=== PATIENT | male | born 1990 | race American Indian/Alaskan Native ===

== ENCOUNTER 2022-02-24 19:43 | Emergency (ER) | payer SELFPAY ==
[2022-02-24 20:26] LABS: Color,Urine Yellow (Yellow)
[2022-02-24 20:27] LABS: Bilirubin,Urine Negative (Negative); Urobilinogen,Urine 0.2 mg/dL (<2.0)
[2022-02-24 20:28] LABS: Blood,Urine Negative (Negative)
[2022-02-24 20:32] LABS: Bacteria,Urine 1+ /HPF (Negative); Mucus,Urine 2+ /HPF; RBC,Urine < 1.0 /HPF (0.0-6.0)
[2022-02-24] MEDS ORDERED: ONDANSETRON 4 MG/2 ML INJ IV ONE (23:00)
[2022-02-24] MEDS ORDERED: FAMOTIDINE 20 MG/2 ML INJ IV ONE (23:00)
[2022-02-24] MEDS ORDERED: MORPHINE 4 MG/1 ML INJ IV ONE (23:00)
[2022-02-24 23:18] LABS: Basophils % (Auto) 0.4 % (0.0-1.8); Eosinophils % (Auto) 0.1 % (0.0-4.3); Hematocrit 47.3 % (35.5-45.6); Hemoglobin 16.2 gm/dl (11.8-15.2); Lymphocytes # (Auto) 0.8 K/mm3 (1.2-5.4); Lymphocytes % (Auto) 7.6 % (13.4-35.0); Mean Corpuscular HGB Conc 34 % (32-34); Mean Corpuscular Volume 89 fl (84-94); Monocytes # (Auto) 0.6 K/mm3 (0.0-0.8); Monocytes % (Auto) 6.2 % (0.0-7.3); Platelet Count 240 K/mm3 (140-440); Red Blood Count 5.33 M/mm3 (3.65-5.03); Red Cell Distribution Width 13.2 % (13.2-15.2)
[2022-02-24 23:35] LABS: Alanine Aminotransferase 98 units/L (7-56); Albumin 4.2 g/dL (3.9-5); BUN/Creatinine Ratio 14; Blood Urea Nitrogen 14 mg/dL (9-20); Calcium 9.7 mg/dL (8.4-10.2); Hemolysis Index 10
--- NOTE | 2022-02-25 00:12 | Cat Scan Report ---
CT ABDOMEN AND PELVIS WITHOUT CONTRAST INDICATION / CLINICAL INFORMATION: ABDOMINAL PAIN. TECHNIQUE: Axial CT images were obtained through the abdomen and pelvis without IV contrast. All CT scans at this location are performed using CT dose reduction for ALARA by means of automated exposure control. COMPARISON: None available. FINDINGS: LOWER CHEST: No significant abnormality LIVER: Mild hepatomegaly with diffuse generalized steatosis. Tiny hepatic cyst in the left hepatic lo be. GALLBLADDER/BILIARY TREE: Gallbladder is unremarkable. No significant biliary dilatation. No biliary stone is identified. PANCREAS: Moderate peripancreatic inflammatory stranding and unencapsulated fluid involving the dista l body and tail of the pancreas. No organized collection. SPLEEN: No significant abnormality ADRENALS: No significant abnormality RIGHT KIDNEY / URETER: Punctate nonobstructive stone at the lower pole calyx. No urolithiasis or hydr onephrosis. LEFT KIDNEY / URETER: No significant abnormality URINARY BLADDER: No significant abnormality REPRODUCTIVE ORGANS: No significant abnormality STOMACH / BOWEL: Small bowel is normal in caliber. The colon is unremarkable. The appendix is normal in caliber. LYMPH NODES: No significant adenopathy. VASCULATURE: No significant abnormality. OTHER: No free air. No organized collection. SKELETAL SYSTEM: No acute osseous findings. IMPRESSION: 1. Acute interstitial edematous pancreatitis of the distal body and tail of the pancreas. No organize d collection. 2. Hepatic steatosis with hepatomegaly. 3. Punctate nonobstructive right renal stone. No urolithiasis or hydronephrosis. Signer Name: Curry Caro MD Signed: 02/25/2022 12:07 AM Workstation Name: [id number]
--- NOTE | 2022-02-25 01:46 | Emergency Department Report ---
ED Abdominal Pain HPI - General Chief Complaint: Abdominal Pain Stated Complaint: STOMACH PAIN Source: patient Mode of arrival: Ambulatory Limitations: No Limitations - History of Present Illness MD Complaint: abdominal pain (periumbilical ), other (nausea) -: Sudden, hour(s) (8) Location: periumbilical Radiation: none Migration to: periumbilical Severity: severe Severity scale (0 -10): 9 Quality: cramping, aching, sharp Consistency: constant Improves With: nothing Worsens With: nothing Context: other (alcohol) Associated Symptoms: denies other symptoms, nausea. denies: vomiting, diarrhea, fever, chills, constipation, dysuria, hematemesis, melena, hematuria, anorexia - Related Data Previous Rx's Medication Instructions Recorded Last Taken Type Dicyclomine [Bentyl] 20 mg PO Q6H PRN #30 tablet 02/25/22 Unknown Rx Famotidine [Pepcid] 20 mg PO Q12H #60 tablet 02/25/22 Unknown Rx Ondansetron [Zofran Odt] 4 mg PO Q8HR PRN #15 tab.rapdis 02/25/22 Unknown Rx traMADoL [Ultram] 50 mg PO Q6HR PRN #12 tablet 02/25/22 Unknown Rx Allergies Allergy/AdvReac Type Severity Reaction Status Date / Time No Known Allergies Allergy Verified 02/24/22 19:56 ED Review of Systems ROS: Stated complaint: STOMACH PAIN Other details as noted in HPI ED Past Medical Hx - Medications Home Medications: Home Medications Medication Instructions Recorded Confirmed Last Taken Type Dicyclomine [Bentyl] 20 mg PO Q6H PRN #30 tablet 02/25/22 Unknown Rx Famotidine [Pepcid] 20 mg PO Q12H #60 tablet 02/25/22 Unknown Rx Ondansetron [Zofran Odt] 4 mg PO Q8HR PRN #15 tab.rapdis 02/25/22 Unknown Rx traMADoL [Ultram] 50 mg PO Q6HR PRN #12 tablet 02/25/22 Unknown Rx ED Physical Exam - General Limitations: No Limitations ED Course Vital Signs 02/24/22 02/24/22 19:56 23:30 Temperature 97.8 F Pulse Rate 80 Respiratory 18 18 Rate Blood Pressure 140/87 O2 Sat by Pulse 98 Oximetry ED Medical Decision Making - Lab Data Result diagrams: 02/24/22 23:06 02/24/22 23:06 - Radiology Data Radiology results: report reviewed, image reviewed [facility] [address] [id number] Cat Scan Report Signed Patient: STEFANIE RICCI MR#: [id number] : 1990 Acct:[id number] Age/Sex: 31 / M A DM Date: 02/24/22 Loc: ED Attending Dr: Ordering Physician: PETRONA ERIC Date of Service: 02/24/22 Procedure(s): CT abdomen pelvis wo con Accession Number(s): [id number] cc: PETRONA ERIC CT ABDOMEN AND PELVIS WITHOUT CONTRAST INDICATION / CLINICAL INFORMATION: ABDOMINAL PAIN. TECHNIQUE: Axial CT images were obtained through the abdomen and pelvis without IV contrast. All CT scans at this location are performed using CT dose reduction for ALARA by means of automated exposure control. COMPARISON: None available. FINDINGS: LOWER CHEST: No significant abnormality LIVER: Mild hepatomegaly with diffuse generalized steatosis. Tiny hepatic cyst in the left hepatic lobe. GALLBLADDER/BILIARY TREE: Gallbladder is unremarkable. No significant biliary dilatation. No biliary stone is identified. PANCREAS: Moderate peripancreatic inflammatory stranding and unencapsulated fluid involving the distal body and tail of the pancreas. No organized collection. SPLEEN: No significant abnormality ADRENALS: No significant abnormality RIGHT KIDNEY / URETER: Punctate nonobstructive stone at the lower pole calyx. No urolithiasis or hydronephrosis. LEFT KIDNEY / URETER: No significant abnormality URINARY BLADDER: No significant abnormality REPRODUCTIVE ORGANS: No significant abnormality STOMACH / BOWEL: Small bowel is normal in caliber. The colon is unremarkable. The appendix is normal in caliber. LYMPH NODES: No significant adenopathy. VASCULATURE: No significant abnormality. OTHER: No free air. No organized collection. SKELETAL SYSTEM: No acute osseous findings. IMPRESSION: 1. Acute interstitial edematous pancreatitis of the distal body and tail of the pancreas. No organized collection. 2. Hepatic steatosis with hepatomegaly. 3. Punctate nonobstructive right renal stone. No urolithiasis or hydronephrosis. Signer Name: Jon Du MD Signed: 02/25/2022 12:07 AM Workstation Name: [id number] Transcribed By: CARIN Dictated By: JON DU MD Electronically Authenticated By: JON DU MD Signed Date/Time: 02/25/22 0007 DD/ 0004 TD/TT: - Medical Decision Making Acute interstitial edematous pancreatitis of the distal body and tail of the pancreas. No organized collection. 2. Hepatic steatosis with hepatomegaly. 3. Punctate nonobstructive right renal stone. No urolithiasis or hydronephrosis. - Differential Diagnosis Pancreatitis; gastroenteritis; GERD; gastritis; Critical care attestation.: If time is entered above; I have spent that time in minutes in the direct care of this critically ill patient, excluding procedure time. ED Disposition Clinical Impression: Abdominal pain, acute, periumbilical Acute alcoholic pancreatitis Qualifiers: Acute pancreatitis complication: unspecified Qualified Code(s): K85.20 - Alcohol induced acute pancreatitis without necrosis or infection Disposition: HOME / SELF CARE / HOMELESS Is pt being admited?: No Does the pt Need Aspirin: No Condition: Stable Instructions: Acute Pancreatitis, [id number], Abdominal Pain, Adult, [id number], Pancreatitis Eating Plan Additional Instructions: Test results were reviewed and were nonactionable. Abdomen-pelvis CT scan without contrast showed showed acute interstitial edematous pancreatitis of the distal body and tail of the pancreas. No organized collection. It also showed hepatic steatosis with hepatomegaly, and punctate nonobstructive right renal stone. No urolithiasis or hydronephrosis. Your symptoms are likely due to acute pancreatitis due to heavy alcohol consumption. Therefore maintain a clear liquid diet for the next 12 to 24 hours, drink plenty of fluids and follow-up with your primary care physician in 5 to 7 days for reevaluation or return to the ED immediately if symptoms get worse. Prescriptions: Dicyclomine [Bentyl] 20 mg PO Q6H PRN #30 tablet PRN Reason: abdominal pain Famotidine [Pepcid] 20 mg PO Q12H #60 tablet traMADoL [Ultram] 50 mg PO Q6HR PRN #12 tablet PRN Reason: Pain Ondansetron [Zofran Odt] 4 mg PO Q8HR PRN #15 tab.rapdis PRN Reason: Nausea Referrals: [facility] [Provider Group] - 3-5 Days Time of Disposition: 01:42 Print Language: INDONESIAN
[2022-02-25] MEDS ORDERED: HYDROmorphone 1 MG/1 ML INJ IV ONE (01:48)
[2022-02-25] MEDS ORDERED: ONDANSETRON 4 MG/2 ML INJ IV ONE (01:48)
[2022-02-25] MEDS ORDERED: KETOROLAC 30 MG/1 ML INJ IV ONE (01:48)
[2022-02-25 02:49] VITALS: BP 147/93
== END 2022-02-25 02:49 | disposition home or self-care (01) ==
LOC: ED 19:43
DX: R10.9 Unspecified abdominal pain (principal); K85.20 Alcohol induced acute pancreatitis without necrosis or infection
CPT/HCPCS: 36415; 74176; 80053; 81001; 83690; 85025; 96374; 96375; 96376; 99284; J1170; J1885; J2270; J2405; J3490